=== PATIENT | female | born 1950 | race Caucasian/White ===

== ENCOUNTER → 2017-04-16 09:51 | Outpatient (CLI) | payer MEDICARE, OTHER | END | disposition home or self-care (01) | LOC: D.CT 09:51 | DX: R10.9 Unspecified abdominal pain (principal) ==

== ENCOUNTER → 2017-06-19 08:22 | Outpatient (CLI) | payer MEDICARE, OTHER | END | disposition home or self-care (01) | LOC: D.MRI 08:22 | DX: R19.00 Intra-abdominal and pelvic swelling, mass and lump, unspecified site (principal) ==